=== PATIENT | male | born 1950 | race Caucasian/White ===

== ENCOUNTER 2020-07-07 13:03 | Inpatient (IN) | payer OTHER ==
[2020-07-07 15:38] LABS: BASO % 0.8 % (0-2.0); EOS % 0.5 % (0-4.5); HEMATOCRIT 36.8 % (35.4-49); HEMOGLOBIN 12.6 GM/dL (11.7-16.9); LYMPH % 22.6 % (8-40); MCH 32.1 pg (25.7-33.7); MCHC 34.4 g/dl (32.0-35.9); MEAN CELL VOLUME 93.3 fl (80-96); MEAN PLT VOLUME 8.7 fl (7.5-11.1); MONO % 5.2 % (3.8-10.2); NEUT % 70.9 % (42.8-82.8); PLATELET COUNT 275 K/MM3 (134-434); RBC 3.94 M/mm3 (4.00-5.60); RDW 13.4 % (11.9-15.9); WHITE BLOOD COUNT 8.7 K/mm3 (4.0-10.0)
[2020-07-07 16:03] LABS: CHLORIDE 108 mmol/L (98-107); SODIUM 140 mmol/L (136-145)
[2020-07-07 16:04] LABS: CALCIUM 9.4 mg/dL (8.5-10.1)
[2020-07-07 16:06] LABS: ALBUMIN 4.2 g/dl (3.4-5.0); ANION GAP 8 MMOL/L (8-16); BLOOD UREA NITROGEN 35.1 mg/dL (7-18); CO2 24 mmol/L (21-32); GLUCOSE,RANDOM 88 mg/dL (74-106)
[2020-07-07 16:09] LABS: CREATININE 1.1 mg/dL (0.55-1.3); SGOT/AST 38 U/L (15-37); SGPT/ALT 92 U/L (13-61)
[2020-07-07 16:10] LABS: BILIRUBIN,TOTAL 0.7 mg/dL (0.2-1); TOT PROT 7.8 g/dl (6.4-8.2)
[2020-07-07 16:11] LABS: ALK PHOS 82 U/L (45-117)
[2020-07-07 17:45] LABS: INR 1.07 (0.83-1.09); PROTHROMBIN TIME (PATIENT) 12.9 SEC (9.7-13.0)
[2020-07-07 17:48] LABS: ACTIVATED PTT 26.8 SECONDS (25.2-36.5)
[2020-07-07] MEDS ORDERED: PANTOPRAZOLE SODIUM 40 MG VIAL IVPUSH SCH (18:00)
[2020-07-07] MEDS ORDERED: LACTATED RINGERS SOLUTION 1,000 ML IV SCH (18:15)
[2020-07-07] MEDS ORDERED: PANTOPRAZOLE SODIUM 40 MG VIAL ONE (21:58)
[2020-07-07 23:08] VITALS: BMI 35.1
[2020-07-08] MEDS ORDERED: ONDANSETRON 4 MG/2 ML VIAL IVPUSH ONE (06:10)
[2020-07-08 06:29] LABS: HEMATOCRIT 33.3 % (35.4-49); HEMOGLOBIN 11.6 GM/dL (11.7-16.9); MCHC 34.9 g/dl (32.0-35.9); MEAN CELL VOLUME 91.7 fl (80-96); PLATELET COUNT 292 K/MM3 (134-434); RBC 3.62 M/mm3 (4.00-5.60); RDW 13.2 % (11.9-15.9); WHITE BLOOD COUNT 12.8 K/mm3 (4.0-10.0)
[2020-07-08 07:06] LABS: CALCIUM 8.7 mg/dL (8.5-10.1); MAGNESIUM 1.8 mg/dL (1.8-2.4)
[2020-07-08 07:09] LABS: CREATININE 1.1 mg/dL (0.55-1.3)
[2020-07-08 07:11] LABS: CHOLESTEROL 152 mg/dL (50-200); TRIGLYCERIDES 131 mg/dL (0-150)
[2020-07-08 07:12] LABS: LDL CHOLESTEROL (ONLY SJRH) 98 mg/dL (5-100)
[2020-07-08 07:13] LABS: HDL CHOLESTEROL 29 mg/dL (40-60)
[2020-07-08 09:03] LABS: BASO % 0.4 % (0-2.0); EOS % 0.8 % (0-4.5); HEMATOCRIT 32.8 % (35.4-49); HEMOGLOBIN 11.4 GM/dL (11.7-16.9); MCH 32.2 pg (25.7-33.7); MCHC 34.8 g/dl (32.0-35.9); MEAN CELL VOLUME 92.4 fl (80-96); MEAN PLT VOLUME 8.3 fl (7.5-11.1); MONO % 4.7 % (3.8-10.2); NEUT % 80.1 % (42.8-82.8); PLATELET COUNT 229 K/MM3 (134-434); RBC 3.55 M/mm3 (4.00-5.60); RDW 13.3 % (11.9-15.9); WHITE BLOOD COUNT 10.7 K/mm3 (4.0-10.0)
[2020-07-08] MEDS: LACTATED RINGERS SOLUTION 1,000 ML IV SCH ×3 (09:38→22:38)
[2020-07-08 09:44] LABS: ALBUMIN 3.6 g/dl (3.4-5.0); BLOOD UREA NITROGEN 34.9 mg/dL (7-18); CALCIUM 8.8 mg/dL (8.5-10.1); MAGNESIUM 1.7 mg/dL (1.8-2.4)
[2020-07-08 09:49] LABS: BILIRUBIN,TOTAL 1.1 mg/dL (0.2-1); TOT PROT 6.8 g/dl (6.4-8.2)
[2020-07-08] MEDS ORDERED: EPINEPHrine 1:10,000 (P-F SYR) 1 MG/10 ML DISP.SYRIN SQ ONE ×2 (11:57)
[2020-07-08] MEDS ORDERED: EPINEPHrine 1:10,000 (P-F SYR) 1 MG/10 ML DISP.SYRIN ONE (12:17)
[2020-07-08] MEDS: PANTOPRAZOLE SODIUM 80 MG in SODIUM CHLORIDE 100 ML IVPB SCH ×2 (13:07→22:56)
[2020-07-08] MEDS ORDERED: PT OWN MED DRAWER 7, Y5N ONE (22:15)
[2020-07-09] MEDS: LACTATED RINGERS SOLUTION 1,000 ML IV SCH ×2 (05:02→10:10)
[2020-07-09 06:50] LABS: BASO % 0.6 % (0-2.0); EOS % 3.5 % (0-4.5); HEMATOCRIT 27.5 % (35.4-49); HEMOGLOBIN 9.8 GM/dL (11.7-16.9); LYMPH % 25.1 % (8-40); MCH 32.5 pg (25.7-33.7); MCHC 35.7 g/dl (32.0-35.9); MEAN CELL VOLUME 91.2 fl (80-96); MONO % 4.9 % (3.8-10.2); NEUT % 65.9 % (42.8-82.8); PLATELET COUNT 190 K/MM3 (134-434); RBC 3.02 M/mm3 (4.00-5.60); RDW 12.9 % (11.9-15.9); WHITE BLOOD COUNT 7.6 K/mm3 (4.0-10.0)
[2020-07-09 07:06] LABS: CALCIUM 8.5 mg/dL (8.5-10.1)
[2020-07-09 07:07] LABS: ALBUMIN 3.2 g/dl (3.4-5.0)
[2020-07-09 07:12] LABS: BILIRUBIN,TOTAL 0.8 mg/dL (0.2-1); TOT PROT 5.8 g/dl (6.4-8.2)
[2020-07-09] MEDS: PANTOPRAZOLE SODIUM 80 MG in SODIUM CHLORIDE 100 ML IVPB SCH ×3 (10:10→20:04)
[2020-07-09 22:03] LABS: BASO % 0.6 % (0-2.0); EOS % 3.5 % (0-4.5); HEMATOCRIT 26.1 % (35.4-49); MCH 32.1 pg (25.7-33.7); MCHC 34.4 g/dl (32.0-35.9); MEAN CELL VOLUME 93.3 fl (80-96); MEAN PLT VOLUME 8.8 fl (7.5-11.1); MONO % 5.3 % (3.8-10.2); NEUT % 60.6 % (42.8-82.8); PLATELET COUNT 194 K/MM3 (134-434); RBC 2.79 M/mm3 (4.00-5.60); RDW 12.8 % (11.9-15.9)
[2020-07-10] MEDS: PANTOPRAZOLE SODIUM 80 MG in SODIUM CHLORIDE 100 ML IVPB SCH ×4 (00:35→21:00)
[2020-07-10 07:59] LABS: BASO % 0.7 % (0-2.0); EOS % 3.9 % (0-4.5); HEMATOCRIT 26.8 % (35.4-49); HEMOGLOBIN 9.5 GM/dL (11.7-16.9); LYMPH % 30.7 % (8-40); MCH 32.7 pg (25.7-33.7); MCHC 35.6 g/dl (32.0-35.9); MEAN CELL VOLUME 91.9 fl (80-96); MEAN PLT VOLUME 8.4 fl (7.5-11.1); MONO % 5.2 % (3.8-10.2); NEUT % 59.5 % (42.8-82.8); PLATELET COUNT 207 K/MM3 (134-434); RBC 2.91 M/mm3 (4.00-5.60); RDW 12.8 % (11.9-15.9); WHITE BLOOD COUNT 7.4 K/mm3 (4.0-10.0)
[2020-07-10 08:22] LABS: ALBUMIN 3.2 g/dl (3.4-5.0); BLOOD UREA NITROGEN 14.8 mg/dL (7-18); CALCIUM 8.2 mg/dL (8.5-10.1); MAGNESIUM 1.9 mg/dL (1.8-2.4)
[2020-07-10 08:27] LABS: BILIRUBIN,TOTAL 0.9 mg/dL (0.2-1); TOT PROT 6.1 g/dl (6.4-8.2)
[2020-07-10] MEDS ORDERED: PANTOPRAZOLE 20 MG TABLET PO SCH (10:00)
[2020-07-10] MEDS ORDERED: PT OWN MED DRAWER 7, Y5N ONE (11:10)
[2020-07-10] MEDS: AMOXICILLIN 500 MG CAPSULE (FP) PO SCH ×2 (11:17→21:01)
[2020-07-10] MEDS: CLARITHROMYCIN 500 MG TABLET (UD) PO SCH ×2 (11:44→21:00)
[2020-07-10 16:12] LABS: GLIADIN ANTIBODY IGA 5 units (0-19); GLIADIN ANTIBODY IGG 2 units (0-19); TRANSGLUTAMINASE IGG < 2 U/mL (0-5)
[2020-07-11] MEDS: PANTOPRAZOLE SODIUM 80 MG in SODIUM CHLORIDE 100 ML IVPB SCH ×2 (06:27→08:41)
[2020-07-11 07:44] LABS: BASO % 0.6 % (0-2.0); EOS % 4.7 % (0-4.5); HEMATOCRIT 27.6 % (35.4-49); HEMOGLOBIN 9.6 GM/dL (11.7-16.9); LYMPH % 22.4 % (8-40); MCH 32.5 pg (25.7-33.7); MCHC 34.9 g/dl (32.0-35.9); MEAN CELL VOLUME 93.1 fl (80-96); MEAN PLT VOLUME 8.3 fl (7.5-11.1); MONO % 5.9 % (3.8-10.2); NEUT % 66.4 % (42.8-82.8); PLATELET COUNT 200 K/MM3 (134-434); RBC 2.96 M/mm3 (4.00-5.60); RDW 12.9 % (11.9-15.9); WHITE BLOOD COUNT 7.3 K/mm3 (4.0-10.0)
[2020-07-11 08:06] LABS: ALBUMIN 3.2 g/dl (3.4-5.0); BLOOD UREA NITROGEN 15.5 mg/dL (7-18); CALCIUM 8.4 mg/dL (8.5-10.1)
[2020-07-11 08:11] LABS: BILIRUBIN,TOTAL 0.9 mg/dL (0.2-1); TOT PROT 6.3 g/dl (6.4-8.2)
[2020-07-11] MEDS ORDERED: PT OWN MED DRAWER 7, Y5N ONE (09:23)
[2020-07-11] MEDS: AMOXICILLIN 500 MG CAPSULE (FP) PO SCH (09:47)
[2020-07-11] MEDS: CLARITHROMYCIN 500 MG TABLET (UD) PO SCH (09:48)
[2020-07-11] MEDS ORDERED: PANTOPRAZOLE 20 MG TABLET PO SCH (12:00)
[2020-07-11 15:41] VITALS: BP 116/77; PULSE 74; TEMP 98.2
== END 2020-07-11 13:36 | disposition home or self-care (01) | DRG 379 ==
LOC: JER 13:03 → JERBED 17:10 → J7W 22:22
PROVIDERS: ATTEND Nurse Practitioner Acute Care
PROC: 0DB68ZX Excision of Stomach, Via Natural or Artificial Opening Endoscopic, Diagnostic (ICD-10-PCS; 2020-07-08)
PROC: 0W3P8ZZ Control Bleeding in Gastrointestinal Tract, Via Natural or Artificial Opening Endoscopic (ICD-10-PCS; principal; 2020-07-08 10:45)
DX: K25.0 Acute gastric ulcer with hemorrhage (principal); R11.2 Nausea with vomiting, unspecified; K92.1 Melena; N40.0 Benign prostatic hyperplasia without lower urinary tract symptoms; S01.81XA Laceration without foreign body of other part of head, initial encounter; B96.81 Helicobacter pylori [H. pylori] as the cause of diseases classified elsewhere; K29.50 Unspecified chronic gastritis without bleeding; W19.XXXA Unspecified fall, initial encounter; Y93.9 Activity, unspecified; Y92.89 Other specified places as the place of occurrence of the external cause; Y99.9 Unspecified external cause status; R74.01 Elevation of levels of liver transaminase levels; K29.80 Duodenitis without bleeding
CPT/HCPCS: 36415; 70450-TC; 71045-TC-FY; 80048; 80053; 80061; 80074; 82272; 82728; 82784; 82962; 83036; 83516; 83540; 83550; 83721; 83735; 84100; 84443; 84484; 85025; 85027; 85610; 85730; 86038; 86140; 86850; 86900; 86901; 86922; 88305-TC; 93005; 93010; 97116-GP; 97162-GP; 99285-25; C9803; U0003; U0005

== ENCOUNTER 2020-08-14 04:30 | Day surgery (SDC) | payer OTHER ==
[2020-08-12 16:35] VITALS: BMI 26.9
[2020-08-14 09:31] VITALS: TEMP 98.2
[2020-08-14 09:37] VITALS: PULSE 66
[2020-08-14 10:09] VITALS: BP 115/92
== END 2020-08-14 10:25 | disposition home or self-care (01) ==
LOC: JASU-ENDO 04:30
PROVIDERS: ATTEND Internal Medicine Gastroenterology
PROC: 0DJD8ZZ Inspection of Lower Intestinal Tract, Via Natural or Artificial Opening Endoscopic (ICD-10-PCS; principal; 2020-08-14 08:15)
DX: Z12.11 Encounter for screening for malignant neoplasm of colon (principal); K64.8 Other hemorrhoids; K57.30 Diverticulosis of large intestine without perforation or abscess without bleeding

== ENCOUNTER 2020-08-21 05:18 | Day surgery (SDC) | payer OTHER ==
[2020-08-20 08:41] VITALS: BMI 35.4
[2020-08-21 14:18] VITALS: TEMP 97.8
[2020-08-21 15:02] VITALS: BP 124/81; PULSE 62
== END 2020-08-21 15:13 | disposition home or self-care (01) ==
LOC: JASU-ENDO 05:18
PROVIDERS: ATTEND Internal Medicine Gastroenterology
PROC: 0DB68ZX Excision of Stomach, Via Natural or Artificial Opening Endoscopic, Diagnostic (ICD-10-PCS; 2020-08-21)
PROC: 0DB48ZX Excision of Esophagogastric Junction, Via Natural or Artificial Opening Endoscopic, Diagnostic (ICD-10-PCS; principal; 2020-08-21 12:00)
DX: K29.50 Unspecified chronic gastritis without bleeding (principal)
CPT/HCPCS: 88305-TC; 88342-TC